=== PATIENT | female | born 1970 | race African-American/Black ===

== ENCOUNTER 2019-05-13 10:56 | Emergency (ER) | payer SELFPAY ==
[2019-05-13 12:04] LABS: Mean Corpuscular Hemoglobin 21.2 pg (27.0-31.0); Mean Corpuscular Volume 70.9 fL (78.0-98.0); Mean Platelet Volume 10.5 fL (7.4-10.4); Platelet Count 286 thou/uL (130-400); White Blood Cell (WBC) Count 8.7 thou/uL (4.8-10.8)
[2019-05-13 12:24] LABS: Eosinophils 3 % (0-10); Hypochromia MODERATE=16-30 cells (100X) (0-5/hpf); Lymphocytes 44 % (21-51); MDiff Complete? YES; Monocytes 3 % (0-10); Neutrophil 50 % (42-75); Platelet Morphology Comment Appears Adequate; Polychromasia SLIGHT = 2-3 cells (100X) (0-2/hpf); Reflex for Review?? NO; Target Cells SLIGHT = 2-5 cells (100X) (0-1/hpf)
[2019-05-13 12:25] LABS: ALT (SGPT) 8 U/L (8-55); AST (SGOT) 14 U/L (5-34); Albumin 3.8 g/dL (3.5-5.0); Alkaline Phosphatase 89 U/L (40-150); Anion Gap 9 mmol/L (10-20); BUN (Urea Nitrogen) 9 mg/dL (7.0-18.7); Bilirubin, Total 0.2 mg/dL (0.2-1.2); Calc. Creatinine Clearance 0 mL/min (70-130); Calcium 9.8 mg/dL (7.8-10.44); Carbon Dioxide 23 mmol/L (22-29); Chloride 110 mmol/L (98-107); Estimated GFR-MDRD 89; Globulin 2.6 g/dL (2.4-3.5); Glucose 89 mg/dL (70-105); Potassium 3.9 mmol/L (3.5-5.1); Protein, Total 6.4 g/dL (6.0-8.3); Sodium 138 mmol/L (136-145)
[2019-05-13] MEDS ORDERED: Lidocaine Viscous Sol 2% 15 ml UD Cup ONE (12:44)
[2019-05-13] MEDS ORDERED: Sucralfate 1 GM/10 ML UDCUP ONE (12:44)
--- NOTE | 2019-05-13 12:44 | RAD ---
2 VIEW CHEST: Date: 05/13/19 HISTORY: Chest pain. FINDINGS: Lung stoddard are clear. Heart and mediastinum unremarkable. Osseous structures unremarkable. IMPRESSION: No acute findings. POS: [facility]
[2019-05-13] MEDS ORDERED: Mag-Al 1200 mg/1200 mg/30 ML UDCUP ONE (12:49)
--- NOTE | 2019-05-13 13:17 | CT ---
CT AORTOGRAM CHEST AND ABDOMEN: INDICATIONS: Chest pain and abdominal pain. Assess for dissection. TECHNIQUE: Axial tomograms obtained with multiplanar reconstruction and 3D post processing. FINDINGS: The thoracic aorta shows normal caliber and opacification. There is no evidence of dissection. The abdominal aorta is also of normal caliber. There is atherosclerotic change in the lower abdomina l aorta; however, no evidence of dissection or aneurysm. The aortic branches, including the celiac a rtery, the superior mesenteric artery, and the renal arteries, appear unremarkable. There is a small right renal artery. Normal caliber left renal artery. Aortic bifurcation is unremarkable. The visualized lung stoddard are clear. No infiltrate or effusion. The mediastinum is unremarkable. The proximal pulmonary arteries are well opacified, and there is no evidence of pulmonary embolus see n proximally. Images through the abdomen show an unremarkable appearing liver, spleen, pancreas, adrenal glands, an d kidneys. IMPRESSION: Unremarkable thoracic and abdominal aorta. POS: [facility]
== END 2019-05-13 14:37 | disposition home or self-care (01) ==
LOC: ERS 10:56
DX: K27.9 Peptic ulcer, site unspecified, unspecified as acute or chronic, without hemorrhage or perforation (principal); R07.9 Chest pain, unspecified; F41.9 Anxiety disorder, unspecified; F32.9 Major depressive disorder, single episode, unspecified; F17.210 Nicotine dependence, cigarettes, uncomplicated
CPT/HCPCS: 36415; 71046; 71275; 80053; 83690; 84484; 85025; 93005

== ENCOUNTER 2019-07-31 20:04 | Emergency (ER) | payer SELFPAY ==
[2019-07-31 21:10] LABS: ALT (SGPT) 9 U/L (8-55); AST (SGOT) 14 U/L (5-34); Albumin 3.9 g/dL (3.5-5.0); Alkaline Phosphatase 96 U/L (40-110); Anion Gap 11 mmol/L (10-20); BUN (Urea Nitrogen) 13 mg/dL (7.0-18.7); Bilirubin, Total Less than 0.2 mg/dL (0.2-1.2); Calc. Creatinine Clearance 0 mL/min (70-130); Calcium 9.8 mg/dL (7.8-10.44); Carbon Dioxide 22 mmol/L (22-29); Chloride 111 mmol/L (98-107); Estimated GFR-MDRD 81; Globulin 2.8 g/dL (2.4-3.5); Glucose 96 mg/dL (70-105); Hemoglobin 8.9 g/dL (12.0-16.0); Lipase 32 U/L (8-78); Mean Corpuscular HGB CONC 30.2 g/dL (32.0-36.0); Mean Corpuscular Hemoglobin 20.3 pg (27.0-31.0); Mean Platelet Volume 10.4 fL (7.4-10.4); Platelet Count 327 thou/uL (130-400); Potassium 4.1 mmol/L (3.5-5.1); Protein, Total 6.7 g/dL (6.0-8.3); Red Blood Cell (RBC) Count 4.37 mill/uL (4.20-5.40); Sodium 140 mmol/L (136-145); White Blood Cell (WBC) Count 7.6 thou/uL (4.8-10.8)
[2019-07-31 21:18] LABS: Anisocytosis SLIGHT = 6-15 cells (100X) (0-5/hpf); Band 7 % (5-11); Elliptocytes SLIGHT = 2-5 cells (100X) (0-1/hpf); Eosinophils 1 % (0-10); Lymphocytes 36 % (21-51); MDiff Complete? YES; Monocytes 3 % (0-10); Neutrophil 53 % (42-75); Target Cells SLIGHT = 2-5 cells (100X) (0-1/hpf)
[2019-07-31 21:31] LABS: Bacteria/HPF None Seen HPF (None Seen); Bilirubin Negative (Negative); Blood, Urine Negative (Negative); Clarity Turbid (Clear); Glucose, Urine (Dipstick) Normal (Negative); Leukocyte 250 Leu/uL (Negative); Nitrite Negative (Negative); Protein, Urine (Dipstick) 10 mg/dL (Neg-Trace); RBC/HPF 0-3 HPF (0-3); Squamous Epithelial 0-3 HPF (0-3); Urobilinogen Normal mg/dL (Less than 2)
--- NOTE | 2019-07-31 21:40 | RAD ---
XR Chest 1 View Portable HISTORY: Epigastric pain COMPARISON: 05/13/2019 study. FINDINGS: Heart size and mediastinum are within normal limits. The lungs are clear of infiltrates. A nodular density in the right upper lobe appears to actually be related to the rib. It was present on the prior exam. IMPRESSION: No active intrathoracic disease.
[2019-07-31] MEDS ORDERED: Mag-Al 1200 mg/1200 mg/30 ML UDCUP ONE (21:45)
[2019-07-31] MEDS ORDERED: Lidocaine Viscous Sol 2% 15 ml UD Cup ONE (21:45)
== END 2019-07-31 23:53 | disposition home or self-care (01) ==
LOC: ERS 20:04
DX: R10.13 Epigastric pain (principal); R39.0 Extravasation of urine; F17.210 Nicotine dependence, cigarettes, uncomplicated
CPT/HCPCS: 36415; 71045; 80053; 81003; 81015; 82274; 83690; 85025; 93005

== ENCOUNTER 2022-01-02 09:33 | Observation (INO) | payer SELFPAY ==
[~2022-01-02 09:33] MED LIST: Iopamidol-370 76% 500 ML 1 ML ONE
[2022-01-02 10:00] LABS: #Basophils 0.1 thou/uL (0.0-0.2); #Eosinphils 0.1 thou/uL (0.0-0.7); #Lymphocytes 2.9 thou/uL (1.20-3.40); #Monocytes 0.7 thou/uL (0.11-0.59); #Neutrophils 3.4 thou/uL (1.40-6.50); %Basophils 1.1 % (0.0-1.0); %Eosinophils 1.4 % (0.0-10.0); %Lymphocytes 40.2 % (21.0-51.0); %Monocytes 9.8 % (0.0-10.0); %Neutrophils 47.6 % (42.0-75.0); Hemoglobin 13.8 g/dL (12.0-16.0); Mean Corpuscular HGB CONC 31.6 g/dL (32.0-36.0); Mean Corpuscular Hemoglobin 27.8 pg (27.0-31.0); Mean Corpuscular Volume 87.8 fL (78.0-98.0); Mean Platelet Volume 8.6 fL (7.4-10.4); Platelet Count 252 thou/uL (130-400); RBC Distribution Width 15.2 % (11.5-14.5); Red Blood Cell (RBC) Count 4.98 mill/uL (4.20-5.40); White Blood Cell (WBC) Count 7.2 thou/uL (4.8-10.8)
[2022-01-02 10:22] LABS: ALT (SGPT) 8 U/L (8-55); AST (SGOT) 14 U/L (5-34); Albumin 4.1 g/dL (3.5-5.0); Alkaline Phosphatase 121 U/L (40-110); Anion Gap 13 mmol/L (10-20); BUN (Urea Nitrogen) 9 mg/dL (9.8-20.1); Bilirubin, Total 0.3 mg/dL (0.2-1.2); Calc. Creatinine Clearance 0 mL/min (70-130); Calcium 11.2 mg/dL (7.8-10.44); Carbon Dioxide 22 mmol/L (22-29); Chloride 105 mmol/L (98-107); Globulin 3.3 g/dL (2.4-3.5); Glucose 94 mg/dL (70-105); Lipase 14 U/L (8-78); Potassium 4.1 mmol/L (3.5-5.1); Protein, Total 7.4 g/dL (6.0-8.3); Sodium 136 mmol/L (136-145)
[2022-01-02] MEDS ORDERED: Lidocaine Viscous Sol 2% 15 ml UD Cup ONE (10:41)
[2022-01-02] MEDS ORDERED: Mag-Al 1200 mg/1200 mg/30 ML UDCUP ONE (10:41)
[2022-01-02 11:26] LABS: Bacteria/HPF 2+ HPF (None Seen); Bilirubin Negative (Negative); Blood, Urine Trace (Negative); Clarity Turbid (Clear); Glucose, Urine (Dipstick) Normal (Negative); Ketone, Urine Negative (Negative); Leukocyte 75 Leu/uL (Negative); Nitrite Negative (Negative); Protein, Urine (Dipstick) 10 mg/dL (Neg-Trace); Specific Gravity, Urine 1.013 (1.002-1.036); Squamous Epithelial 21-50 HPF (0-3); Urobilinogen Normal mg/dL (Less than 2); pH, Urine 5.5 (5.0-9.0)
[2022-01-02 12:56] LABS: Troponin I 0.012 ng/mL (< 0.028)
[2022-01-02] MEDS ORDERED: HYDROcodone/Acetaminophen 5/325 mg Tablet PO PRN (13:30)
[2022-01-02] MEDS ORDERED: Nitroglycerin 0.4 MG TAB (25 Tab Bottle) SL PRN (13:30)
[2022-01-02] MEDS ORDERED: Aspirin 325 MG TAB PO SCH (13:30)
[2022-01-02] MEDS ORDERED: Ondansetron PF 4 MG/2 ML Vial IVP PRN (13:30)
[2022-01-02] MEDS ORDERED: Acetaminophen 325 MG TAB PO PRN (13:30)
[2022-01-02] MEDS ORDERED: Calcium Carbonate 500 MG ChewTAB PO PRN (13:30)
[2022-01-02] MEDS ORDERED: Bisacodyl 10 MG SUPP PR PRN (13:30)
[2022-01-02] MEDS ORDERED: Bisacodyl 5 MG TAB PO PRN (13:30)
[2022-01-02] MEDS ORDERED: Ondansetron ODT 4 MG TAB PO PRN (13:30)
[2022-01-02] MEDS ORDERED: hydrALAZINE 20 MG/ML VIAL SLOW IVP PRN (14:41)
[2022-01-02] MEDS ORDERED: Amlodipine 5 MG TAB PO SCH (14:45)
[2022-01-02] MEDS ORDERED: Lidocaine 2% Viscous Solution 20 ML, Aluminum & Magnesium Hydroxide 30 ML, Donnatal Eli... SSW SCH (15:15)
[2022-01-02 15:33] VITALS: BMI 30.8
[2022-01-02 15:34] LABS: Hemoglobin A1c 5.1 % (4.0-6.0)
[2022-01-02 15:51] LABS: Troponin I 0.013 ng/mL (< 0.028)
[2022-01-02] MEDS: Lactated Ringer's 1,000 ML IV SCH (16:11)
[2022-01-02] MEDS: Nicotine 21 MG PATCH TD SCH (16:11)
[2022-01-02 17:30] LABS: SARS-CoV-2 NAA Rapid Test Not Detected (NotDetected)
[2022-01-02 18:31] LABS: Troponin I 0.012 ng/mL (< 0.028)
[2022-01-02] MEDS: Senokot S 8.6-50 MG TAB PO SCH (20:33)
[2022-01-02] MEDS: Famotidine 20 MG TAB PO SCH (20:33)
[2022-01-02] MEDS ORDERED: Atorvastatin Calcium 40 MG TAB PO SCH (21:00)
[2022-01-02 23:24] LABS: Amphetamine Not Detected (NotDetected); Barbiturates Screen Not Detected (NotDetected); Benzodiazepine Screen Not Detected (NotDetected); Cocaine Metabolite Screen Not Detected (NotDetected); Methadone Not Detected (NotDetected); Methamphetamine Not Detected (NotDetected); Opiate Screen Not Detected (NotDetected); Oxycodone Screen Not Detected (NotDetected); Phencyclidine (PCP) Not Detected (NotDetected); THC/Cannabinoid Screen Not Detected (NotDetected); Tricyclic Screen Not Detected (NotDetected)
[2022-01-03] MEDS: Lactated Ringer's 1,000 ML IV SCH ×2 (02:22→13:33)
[2022-01-03 05:05] LABS: #Eosinphils 0.1 thou/uL (0.0-0.7); #Lymphocytes 3.4 thou/uL (1.20-3.40); #Monocytes 0.8 thou/uL (0.11-0.59); #Neutrophils 3.1 thou/uL (1.40-6.50); %Basophils 0.6 % (0.0-1.0); %Eosinophils 1.4 % (0.0-10.0); %Lymphocytes 45.7 % (21.0-51.0); %Monocytes 10.7 % (0.0-10.0); %Neutrophils 41.6 % (42.0-75.0); Hemoglobin 12.9 g/dL (12.0-16.0); Mean Corpuscular HGB CONC 31.7 g/dL (32.0-36.0); Mean Corpuscular Hemoglobin 27.8 pg (27.0-31.0); Mean Corpuscular Volume 87.9 fL (78.0-98.0); Mean Platelet Volume 8.7 fL (7.4-10.4); Platelet Count 239 thou/uL (130-400); RBC Distribution Width 14.9 % (11.5-14.5); Red Blood Cell (RBC) Count 4.65 mill/uL (4.20-5.40); White Blood Cell (WBC) Count 7.5 thou/uL (4.8-10.8)
[2022-01-03 05:20] LABS: Phosphorus 2.8 mg/dL (2.3-4.7)
[2022-01-03 05:29] LABS: Anion Gap 11 mmol/L (10-20); BUN (Urea Nitrogen) 11 mg/dL (9.8-20.1); Calc. Creatinine Clearance 125 mL/min (70-130); Carbon Dioxide 27 mmol/L (22-29); Cardiac Risk 4.1 (Less than 4.5); Chloride 104 mmol/L (98-107); Cholesterol 150 mg/dl (< 200 Desired); Glucose 92 mg/dL (70-105); HDL Cholesterol 37 mg/dL (>60 Neg Risk); LDL Cholesterol, Calculated 97 mg/dL; Magnesium 1.9 mg/dL (1.6-2.6); Potassium 3.8 mmol/L (3.5-5.1); Sodium 138 mmol/L (136-145); Triglycerides 78 mg/dL (Less than 150)
[2022-01-03] MEDS ORDERED: ADENOSINE 60 MG/20 ML VIAL ONE (08:47)
[2022-01-03] MEDS ORDERED: Enoxaparin Sodium 40 MG/0.4 ML SYRINGE SC SCH (09:00)
[2022-01-03] MEDS ORDERED: Amlodipine 5 MG TAB PO SCH (09:00)
[2022-01-03] MEDS ORDERED: Losartan 25 MG TAB PO SCH (09:00)
[2022-01-03] MEDS ORDERED: Aspirin Chewable 81 MG TAB PO SCH (09:00)
[2022-01-03] MEDS ORDERED: Mag-Al 1200 mg/1200 mg/30 ML UDCUP PO PRN (09:29)
[2022-01-03] MEDS ORDERED: Morphine 4 MG/ML VIAL SLOW IVP SCH (09:45)
[2022-01-03] MEDS: Famotidine 20 MG TAB PO SCH (13:32)
[2022-01-03] MEDS: Senokot S 8.6-50 MG TAB PO SCH (13:33)
[2022-01-03 13:50] VITALS: TEMP 98
[2022-01-03 15:48] VITALS: BP 161/84
[2022-01-03] MEDS: Nicotine 21 MG PATCH TD SCH (15:57)
== END 2022-01-03 16:30 | disposition home or self-care (01) ==
LOC: SUATTDRO 09:33 → ERS 09:33 → ERHOLD 13:33 → 2SW 15:23
PROVIDERS: ADMIT Family Medicine; ATTEND Internal Medicine
DX: R10.13 Epigastric pain (principal); R51.9 Headache, unspecified; I16.0 Hypertensive urgency; I10 Essential (primary) hypertension; E83.52 Hypercalcemia; N63.20 Unspecified lump in the left breast, unspecified quadrant; K57.90 Diverticulosis of intestine, part unspecified, without perforation or abscess without bleeding; M62.08 Separation of muscle (nontraumatic), other site; K42.9 Umbilical hernia without obstruction or gangrene; F17.210 Nicotine dependence, cigarettes, uncomplicated; E66.09 Other obesity due to excess calories; Z68.30 Body mass index [BMI] 30.0-30.9, adult; Z91.14 Patient's other noncompliance with medication regimen; Z20.822 Contact with and (suspected) exposure to COVID-19
CPT/HCPCS: 36415; 71045; 74177; 76705; 78452; 80048; 80053; 80061; 80306; 81003; 81015; 83036; 83690; 83735; 83880; 83970; 84100; 84443; 84484; 85025; 93005; 93010; 93017; 96372; 96374; 96375; A9500; G0378; J0153; J0360; J1650; J2270; J7120; Q9967; U0002

== ENCOUNTER 2024-08-04 11:28 | Emergency (ER) | payer SELFPAY ==
[2024-08-04 12:20] LABS: #Basophils 0.03 10x3/uL (0.0-0.2); %Basophils 0.3 % (0.0-1.0); %Eosinophils 0.5 % (0.0-10.0); %Neutrophils 67.9 % (42.0-75.0); Hematocrit 44.4 % (36.0-47.0); Hemoglobin 14.5 g/dL (12.0-16.0); Mean Corpuscular HGB CONC 32.7 g/dL (32.0-36.0); Mean Corpuscular Hemoglobin 28.8 pg (27.0-31.0); Mean Corpuscular Volume 88.3 fL (78.0-98.0); Mean Platelet Volume 11.9 fL (7.4-10.4); Platelet Count 237 10x3/uL (130-400); RBC Distribution Width 16.1 % (11.5-14.5); Red Blood Cell (RBC) Count 5.03 mill/uL (4.20-5.40)
[2024-08-04 12:53] LABS: ALT (SGPT) 12 U/L (8-55); AST (SGOT) 13 U/L (5-34); Alkaline Phosphatase 143 U/L (40-110); Anion Gap 9 mmol/L (10-20); BUN (Urea Nitrogen) 10 mg/dL (9.8-20.1); Bilirubin, Total 0.3 mg/dL (0.2-1.2); Calc. Creatinine Clearance 0 mL/min (70-130); Calcium 10.1 mg/dL (7.8-10.44); Carbon Dioxide 26 mmol/L (22-29); Chloride 110 mmol/L (98-107); Estimated GFR 92; Globulin 3.3 g/dL (2.4-3.5); Glucose 110 mg/dL (70-105); Lipase 15 U/L (8-78); Potassium 3.4 mmol/L (3.5-5.1); Protein, Total 7.3 g/dL (6.0-8.3); Sodium 142 mmol/L (136-145)
[2024-08-04] MEDS ORDERED: cloNIDine 0.1 MG TAB ONE (14:28)
[2024-08-04] MEDS ORDERED: Ketorolac Tromethamine 30 MG (1 mL) VIAL ONE (14:28)
[2024-08-04] MEDS ORDERED: Lidocaine 1% PF 5 ML VIAL ONE (14:29)
[2024-08-04] MEDS ORDERED: cefTRIAXone (ROCEPHIN) 1 GM VIAL ONE (14:29)
[2024-08-04 15:14] LABS: Bacteria/HPF 4+ HPF (None Seen); Bilirubin Negative (Negative); Blood, Urine 3+ (Negative); CAUTI Indications for Culture Dysuria,urgency,freq; Clarity Clear (Clear); Glucose, Urine (Dipstick) Normal (Negative); Ketone, Urine Negative (Negative); Leukocyte 500 Leu/uL (Negative); Nitrite Negative (Negative); Protein, Urine (Dipstick) 70 mg/dL (Neg-Trace); RBC/HPF 21-50 HPF (0-3); Specific Gravity, Urine 1.003 (1.002-1.036); Squamous Epithelial None Seen HPF (0-3); Urobilinogen Normal mg/dL (Less than 2); WBC/HPF Greater than 50 HPF (0-3)
[2024-08-04 15:15] LABS: Urine Culture Reflex Yes Yes
== END 2024-08-04 14:48 | disposition home or self-care (01) ==
LOC: ERS 11:28
DX: N10 Acute pyelonephritis (principal); I10 Essential (primary) hypertension; F17.210 Nicotine dependence, cigarettes, uncomplicated
CPT/HCPCS: 36415; 74176; 80053; 81001; 83690; 85025; 87077; 87086; 87186; 96372; J0696; J1885

== ENCOUNTER 2025-05-28 07:10 | Inpatient (IN) | payer OTHER, SELFPAY ==
[2025-05-28] MEDS ORDERED: Ondansetron PF 4 MG/2 ML Vial ONE (07:27)
[2025-05-28] MEDS ORDERED: hydrALAZINE 20 MG/ML VIAL ONE ×2 (07:27→14:09)
[2025-05-28 08:07] LABS: #Basophils Less than 0.03 10x3/uL (0.0-0.2); #Eosinophils 0.08 10x3/uL (0.0-0.7); #Monocytes 0.55 10x3/uL (0.11-0.59); #Neutrophils 4.26 10x3/uL (1.40-6.50); %Basophils 0.3 % (0.0-1.0); %Eosinophils 1.1 % (0.0-10.0); %Lymphocytes 32.5 % (21.0-51.0); %Monocytes 7.5 % (0.0-10.0); %Neutrophils 58.5 % (42.0-75.0); Hematocrit 44.0 % (36.0-47.0); Hemoglobin 14.4 g/dL (12.0-16.0); Mean Corpuscular Hemoglobin 27.3 pg (27.0-31.0); Mean Corpuscular Volume 83.5 fL (78.0-98.0); Platelet Count 236 10x3/uL (130-400); Red Blood Cell (RBC) Count 5.27 mill/uL (4.20-5.40); White Blood Cell (WBC) Count 7.29 10x3/uL (4.8-10.8)
[2025-05-28] MEDS ORDERED: niCARdipine 25 MG/10 ML SDV ONE ×3 (08:17→16:11)
[2025-05-28] MEDS ORDERED: HYDROmorphone 0.5 MG/0.5 ML SYRINGE ONE (08:18)
[2025-05-28 08:26] LABS: ALT (SGPT) 8 U/L (Less than 34); AST (SGOT) 16 U/L (11-34); Albumin 4.2 g/dL (3.1-4.5); Alkaline Phosphatase 129 U/L (40-110); Anion Gap 13 mmol/L (10-20); BUN (Urea Nitrogen) 10 mg/dL (9.8-20.1); Bilirubin, Total 0.4 mg/dL (0.3-1.2); Calc. Creatinine Clearance 0 mL/min (70-130); Calcium 9.8 mg/dL (7.8-10.44); Carbon Dioxide 25 mmol/L (22-29); Chloride 107 mmol/L (98-107); Globulin 3.2 g/dL (2.4-3.5); Glucose 106 mg/dL (70-105); Potassium 3.3 mmol/L (3.5-5.1); Sodium 142 mmol/L (136-145)
[2025-05-28 08:30] LABS: Troponin I 0.058 ng/mL (< 0.028)
[2025-05-28] MEDS ORDERED: Guaifenesin DM 100-10/5 ML UDCUP PO PRN (11:37)
[2025-05-28] MEDS ORDERED: Senokot S 8.6-50 MG TAB PO PRN (11:37)
[2025-05-28] MEDS ORDERED: Calcium Carbonate 500 MG ChewTAB PO PRN (11:37)
[2025-05-28] MEDS ORDERED: Nitroglycerin 0.4 MG TAB (25 Tab Bottle) SL PRN (11:44)
[2025-05-28 12:23] LABS: Troponin I 0.064 ng/mL (< 0.028)
[2025-05-28] MEDS: niCARdipine 25 MG in Sodium Chloride 0.9% 250 ML 250 ML IVPB SCH (13:03)
[2025-05-28] MEDS ORDERED: Carvedilol 6.25 MG TAB ONE (14:09)
[2025-05-28] MEDS ORDERED: Potassium Bicarbonate/Cit Ac 20 MEQ TAB ONE (14:10)
[2025-05-28] MEDS: Carvedilol 6.25 MG TAB PO SCH ×2 (14:13→17:16)
[2025-05-28] MEDS: hydrALAZINE 20 MG/ML VIAL SLOW IVP PRN (14:18)
[2025-05-28] MEDS: Electrolyte Replacement Protocol 1 EACH FS ONE (14:18)
[2025-05-28 14:43] LABS: Troponin I 0.059 ng/mL (< 0.028)
[2025-05-28] MEDS ORDERED: Iopamidol 370 76% 100 ML VIAL ONE (14:45)
[2025-05-28] MEDS ORDERED: Carvedilol 6.25 MG TAB PO SCH (17:00)
[2025-05-28 17:12] VITALS: BMI 33.1
[2025-05-28 17:15] LABS: Cocaine Metabolite Screen Negative (Negative); THC/Cannabinoid Screen PRELIM POSITIVE (Negative); Tricyclic Screen Negative (Negative)
[2025-05-28] MEDS: Nitroglycerin 2% Ointment 1 INCH/1 GM Packet TOP SCH (17:15)
[2025-05-28] MEDS: Famotidine/PF 20 mg/2ml Vial SLOW IVP SCH (20:04)
[2025-05-28] MEDS: Acetaminophen 325 MG TAB PO PRN (20:04)
[2025-05-29] MEDS: hydrALAZINE 20 MG/ML VIAL SLOW IVP PRN (03:46)
[2025-05-29 04:07] LABS: #Basophils Less than 0.03 10x3/uL (0.0-0.2); #Eosinophils 0.08 10x3/uL (0.0-0.7); #Monocytes 0.96 10x3/uL (0.11-0.59); #Neutrophils 6.30 10x3/uL (1.40-6.50); %Basophils 0.2 % (0.0-1.0); %Eosinophils 0.8 % (0.0-10.0); %Lymphocytes 25.7 % (21.0-51.0); %Monocytes 9.6 % (0.0-10.0); %Neutrophils 63.4 % (42.0-75.0); Hematocrit 41.4 % (36.0-47.0); Hemoglobin 13.7 g/dL (12.0-16.0); Mean Corpuscular Hemoglobin 27.6 pg (27.0-31.0); Mean Corpuscular Volume 83.3 fL (78.0-98.0); Platelet Count 229 10x3/uL (130-400); Red Blood Cell (RBC) Count 4.97 mill/uL (4.20-5.40); White Blood Cell (WBC) Count 9.95 10x3/uL (4.8-10.8)
[2025-05-29 04:29] LABS: ALT (SGPT) Less than 7 U/L (Less than 34); AST (SGOT) 13 U/L (11-34); Albumin 3.7 g/dL (3.1-4.5); Alkaline Phosphatase 122 U/L (40-110); Anion Gap 12 mmol/L (10-20); BUN (Urea Nitrogen) 9 mg/dL (9.8-20.1); Bilirubin, Total 0.4 mg/dL (0.3-1.2); Calc. Creatinine Clearance 138 mL/min (70-130); Calcium 9.9 mg/dL (7.8-10.44); Carbon Dioxide 23 mmol/L (22-29); Cardiac Risk 4.2 (Less than 4.5); Chloride 111 mmol/L (98-107); Cholesterol 138 mg/dl (< 200 Desired); Globulin 3.2 g/dL (2.4-3.5); Glucose 105 mg/dL (70-105); HDL Cholesterol 33 mg/dL (>60 Neg Risk); LDL Cholesterol, Calculated 87 mg/dL; Potassium 3.7 mmol/L (3.5-5.1); Sodium 142 mmol/L (136-145); Triglycerides 92 mg/dL (Less than 150)
[2025-05-29] MEDS: Aspirin Chewable 81 MG TAB PO SCH (08:28)
[2025-05-29] MEDS: Enoxaparin 40 MG (0.4 mL) SYRINGE SC SCH (08:29)
[2025-05-29] MEDS: Losartan 25 MG TAB PO SCH (12:18)
[2025-05-29] MEDS: Carvedilol 6.25 MG TAB PO SCH ×2 (12:18→16:51)
[2025-05-29] MEDS: NIFEdipine XL 60 MG ER.TAB PO SCH (16:51)
[2025-05-30] MEDS: NIFEdipine XL 60 MG ER.TAB PO SCH ×2 (09:33→11:00)
[2025-05-30] MEDS: Losartan 25 MG TAB PO SCH (09:33)
[2025-05-30] MEDS: Carvedilol 6.25 MG TAB PO SCH (11:00)
[2025-05-30] MEDS: Carvedilol 25 MG TAB PO SCH (16:41)
[2025-05-30] MEDS: Famotidine 20 MG TAB PO SCH (21:11)
[2025-05-31] MEDS: Ondansetron PF 4 MG/2 ML Vial IVP PRN (07:55)
[2025-05-31] MEDS: NIFEdipine XL 60 MG ER.TAB PO SCH (08:01)
[2025-06-01] MEDS: Losartan 25 MG TAB PO SCH (20:37)
[2025-06-02] MEDS: Losartan 25 MG TAB PO SCH ×2 (08:41→20:00)
[2025-06-02 15:43] LABS: Bacteria/HPF 4+ HPF (None Seen); Glucose, Urine (Dipstick) Normal (Negative); Leukocyte 250 Leu/uL (Negative); Protein, Urine (Dipstick) Negative (Neg-Trace); RBC/HPF 0-3 HPF (0-3); Specific Gravity, Urine 1.008 (1.002-1.036)
[2025-06-02] MEDS: cefTRIAXone\\ROCEPHIN 1 GM in Sodium Chloride 0.9% 100 ML IVPB SCH (16:29)
[2025-06-03 00:35] VITALS: BMI 33.0
[2025-06-04] MEDS: Losartan 25 MG TAB PO SCH (10:41)
[2025-06-04 12:29] VITALS: BP 134/82; TEMP 98.3
[2025-06-04] MEDS ORDERED: Losartan 25 MG TAB PO SCH (21:00)
== END 2025-06-04 15:53 | disposition home or self-care (01) | DRG 281 ==
LOC: ERS 07:10 → ERHOLD 11:20 → CCU 16:37 → OBS 05-30 20:45
PROVIDERS: ADMIT Hospitalist; ATTEND Student in an Organized Health Care Education/Training Program
DX: I16.1 Hypertensive emergency (principal); I50.30 Unspecified diastolic (congestive) heart failure; I21.A1 Myocardial infarction type 2; N39.0 Urinary tract infection, site not specified; Z79.899 Other long term (current) drug therapy; F17.210 Nicotine dependence, cigarettes, uncomplicated; E87.6 Hypokalemia; Z91.148 Patient's other noncompliance with medication regimen for other reason; I11.0 Hypertensive heart disease with heart failure
CPT/HCPCS: 36415; 71045; 71275; 74174; 78452; 80053; 80061; 80306; 81003; 81015; 83880; 84484; 85025; 85379; 93005; 93017; 93306; 94760; 96374; 96375; A9502; J0360; J0696; J1171; J1308; J1650; J2270; J2405; J2785; J7050; Q9967